=== PATIENT | female | born 1970 | race Caucasian/White ===

== ENCOUNTER 2016-11-16 15:38 | Emergency (ER) | payer BC ==
[2016-11-16] MEDS ORDERED: GI Cocktail Oral Solution 30 ML PO ONE (15:53)
[2016-11-16 15:59] VITALS: BP 150/91
--- NOTE | 2016-11-16 16:09 | EDM.PDOC ---
ED HPI GENERAL MEDICAL PROBLEM - General Chief Complaint: General Stated Complaint: ESOPHAGEAL PAIN Time Seen by Provider: 11/16/16 15:40 Source of Information: Reports: Patient History Limitations: Reports: No Limitations - History of Present Illness INITIAL COMMENTS - FREE TEXT/NARRATIVE: According to patient she claims that she has been having sensation of food stuck in her throat almost all the time for the past 3 years. now She claims some times she has to vomit to feel better. No heart marie. No back pain. No nausea. But over the past 1 month it has got worse. She claims even liquids feel like it gets stuck in the throat. She drank some soup today and feel like it is stuck in the throat. No pain in the throat or chest. No shortness of breath. No drooling of saliva. No fever or chills. Pt claims that she was seen in [place] 3 years ago and had swallow study done and was reassured everything was fine, but has not felt any better. She has tried omeprazole in the past and also tries TUMs on and off, but does not help.Apparently pt has not seen her primary care provider for a while. - Related Data Allergies Allergy/AdvReac Type Severity Reaction Status Date / Time morphine Allergy Hives Verified 11/16/16 15:59 oxycodone Allergy Hives Verified 11/16/16 15:59 Home Meds: Home Meds D-Methorphan/PE/Acetaminophen [Daytime Cold & Flu Liquid] 30 ml PO DAILY [History] DM/P-Ephed/Acetaminoph/Doxylam [Nyquil D Cold & Flu Liquid] 30 ml PO DAILY 09/10 [History] Ibuprofen [Advil] 200 mg PO BID 09/10/14 [History] Past Medical History Other Musculoskeletal History: pain in her side all the time. Social & Family History - Tobacco Use Smoking Status *Q: Former Smoker Years of Tobacco use: 6 Used Tobacco, but Quit: Yes Month Tobacco Last Used: april Second Hand Smoke Exposure: No - Alcohol Use Days Per Week of Alcohol Use: 7 Number of Drinks Per Day: 1 Total Drinks Per Week: 7 - Recreational Drug Use Recreational Drug Use: No ED ROS GENERAL - Review of Systems Review Of Systems: See Below Constitutional: Denies: Fever, Chills, Malaise, Night Sweats, Weight Loss, Weight Gain HEENT: Denies: Eye Discharge, Hearing Loss, Nose Pain, Sinus Problem, Throat Pain, Throat Swelling Respiratory: Denies: Shortness of Breath, Wheezing, Cough, Sputum Cardiovascular: Denies: Chest Pain, Lightheadedness GI/Abdominal: Reports: Vomiting. Denies: Abdominal Pain, Constipation, Diarrhea , Nausea : Denies: Dysuria, Flank Pain Musculoskeletal: Denies: Joint Pain, Joint Swelling Skin: Denies: Cyanosis, Pruritis, Rash Neurological: Denies: Confusion, Dizziness, Headache ED EXAM, GENERAL - Physical Exam Exam: See Below Free Text/Narrative:: Pt is very anxious and tearful. But not in pain. Exam Limited By: No Limitations General Appearance: Alert, WD/WN, No Apparent Distress, Anxious Eye Exam: Bilateral Eye: EOMI, PERRL Ears: Normal External Exam, Normal Canal, Hearing Grossly Normal, Normal TMs Ear Exam: Bilateral Ear: Auricle Normal, Canal Normal, TM normal Nose: Normal Inspection, Normal Mucosa, No Blood Throat/Mouth: Normal Inspection, Normal Lips, Normal Teeth, Normal Gums, Normal Oropharynx, Normal Voice, No Airway Compromise Head: Atraumatic, Normocephalic Neck: Normal Inspection, Supple, Non-Tender, Full Range of Motion Respiratory/Chest: No Respiratory Distress, Lungs Clear, Normal Breath Sounds, No Accessory Muscle Use, Chest Non-Tender Cardiovascular: Normal Peripheral Pulses, Regular Rate, Rhythm, No Edema, No Gallop, No JVD, No Murmur, No Rub GI/Abdominal: Normal Bowel Sounds, Soft, Non-Tender, No Organomegaly, No Distention, No Abnormal Bruit, No Mass Back Exam: Normal Inspection, Full Range of Motion, NT Extremities: Normal Inspection, Normal Range of Motion, Non-Tender, Normal Capillary Refill, No Pedal Edema Neurological: Alert, Oriented, CN II-XII Intact, Normal Cognition, Normal Gait, Normal Reflexes, No Motor/Sensory Deficits Psychiatric: Anxious, Tearful Course - Vital Signs Text/Narrative:: Pt is having feeling of something stuck in her throat for about 3 years now. She has had normal swallow study done in [place]. Pt is very anxious. She did received GI cocktail which did not help her much. She is not vomiting, but c /o of something stuck in the throat. Her oral exam and general exam is normal. She has treated herself for Peptic ulcer disease with TUMs and omeprazole which have not help. 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 Her chest Xray is normal. I have recommended patient to followup in the clinic and have Upper GI study done for further workup of her swallow issue. Last Recorded V/S: Last Vital Signs Temp 99.8 F 11/16/16 15:55 Pulse 96 11/16/16 15:55 Resp BP 150/91 H 11/16/16 15:55 Pulse Ox 98 11/16/16 15:55 - Orders/Labs/Meds Orders: Active Orders 24 hr Category Date Time Status Chest 2V [CR] Stat Exams 11/16/16 16:20 Ordered Meds: Medications Discontinued Medications Generic Name Dose Route Start Last Admin Trade Name Freq PRN Reason Stop Dose Admin Al Hydroxide/Mg Hydroxide 30 ml 11/16/16 15:53 Gi Cocktail PO 11/16/16 15:54 ONETIME ONE Departure - Departure Time of Disposition: 16:40 Disposition: Home, Self-Care 01 Condition: Good Clinical Impression: Globus hystericus - Discharge Information Forms: ED Department Discharge Additional Instructions: Follow-up in the clinic to get get an appt with a specialist to do an upper GI scope. 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 Clinical exam is normal. Her chest Xray is normal. I have recommended patient to followup in the clinic and have Upper GI study done for further workup of her swallow issue.
--- NOTE | 2016-11-17 08:37 | CR ---
DATE OF SERVICE: 11/16/16 CLINICAL DATA: difficulty swallowing PA AND LATERAL CHEST: Normal. [id number] MTDD
== END 2016-11-16 16:38 | disposition home or self-care (01) ==
LOC: LB.ED 15:38
DX: F45.8 Other somatoform disorders (principal); Z88.5 Allergy status to narcotic agent; Z79.899 Other long term (current) drug therapy; Z87.891 Personal history of nicotine dependence
CPT/HCPCS: 71020; 99283

== ENCOUNTER 2017-11-01 15:09 | Emergency (ER) | payer BC ==
--- NOTE | 2017-11-01 16:11 | EDM.PDOC ---
ED HPI GENERAL MEDICAL PROBLEM - General Chief Complaint: Upper Extremity Injury/Pain Stated Complaint: Broken Thumb Time Seen by Provider: 11/01/17 15:15 Source of Information: Reports: Patient, Family History Limitations: Reports: No Limitations - History of Present Illness INITIAL COMMENTS - FREE TEXT/NARRATIVE: Patient is a 47 year old woman who was walking her Ashlee Galdamez, who is a large dog with and extendable leash on which a piece of rope was tied. The dog went in a direction different than she thought he would and the end of her thumb had the rope wrapped around it. When the dog came to the end of the leash , the end of her thumb was pulled and the distal phalange was torn off the proximal phalange and is sitting in front of the proximal phalange held there by a piece of skin and muscle. Onset: Today Onset Date: 11/01/17 Onset Time: 14:45 Duration: Minutes: (30) Location: Reports: Upper Extremity, Right (Distal phalange partial amputation.) Quality: Reports: Sharp Severity: Severe Improves with: Reports: None Worsens with: Reports: None Context: Reports: Activity (Walking the dog.) Associated Symptoms: Reports: No Other Symptoms - Related Data Allergies Allergy/AdvReac Type Severity Reaction Status Date / Time morphine Allergy Hives Verified 11/16/16 15:59 oxycodone Allergy Hives Verified 11/16/16 15:59 Home Meds: Home Meds D-Methorphan/PE/Acetaminophen [Daytime Cold & Flu Liquid] 30 ml PO DAILY [History] DM/P-Ephed/Acetaminoph/Doxylam [Nyquil D Cold & Flu Liquid] 30 ml PO DAILY 09/10 [History] Ibuprofen [Advil] 200 mg PO BID 09/10/14 [History] Past Medical History Other Musculoskeletal History: pain in her side all the time. Review of Systems - Review of Systems Review Of Systems: See Below Constitutional: Reports: No Symptoms Eyes: Reports: No Symptoms Ears: Reports: No Symptoms Nose: Reports: No Symptoms Mouth/Throat: Reports: No Symptoms Respiratory: Reports: No Symptoms Cardiovascular: Reports: No Symptoms GI/Abdominal: Reports: No Symptoms Genitourinary: Reports: No Symptoms Musculoskeletal: Reports: Hand Pain (Severe pain ) Skin: Reports: No Symptoms Neurological: Reports: No Symptoms ED EXAM, GENERAL - Physical Exam Exam: See Below Exam Limited By: No Limitations General Appearance: Alert, WD/WN, No Apparent Distress Eye Exam: Bilateral Eye: EOMI, Normal Fundi, Normal Inspection, PERRL Ears: Normal External Exam, Normal Canal, Hearing Grossly Normal, Normal TMs Ear Exam: Bilateral Ear: Auricle Normal, Canal Normal, TM normal Nose: Normal Inspection, Normal Mucosa, No Blood Throat/Mouth: Normal Inspection, Normal Lips, Normal Teeth, Normal Gums, Normal Oropharynx, Normal Voice, No Airway Compromise Head: Atraumatic, Normocephalic Neck: Normal Inspection, Supple, Non-Tender, Full Range of Motion Respiratory/Chest: No Respiratory Distress, Lungs Clear, Normal Breath Sounds, No Accessory Muscle Use, Chest Non-Tender Cardiovascular: Normal Peripheral Pulses, Regular Rate, Rhythm, No Edema, No Gallop, No JVD, No Murmur, No Rub Extremities: Other (The distal phalange of the right thumb is sitting in front of the proximal phalange of the right thumb, held there by a 1 cm by 3 mm thick piece of skin and muscle. It is dislocated and open to the air.) Neurological: Alert, Oriented, CN II-XII Intact, Normal Cognition, Normal Gait, Normal Reflexes, No Motor/Sensory Deficits Psychiatric: Normal Affect, Normal Mood Skin Exam: Warm, Dry, Intact, Normal Color, No Rash Course - Vital Signs Text/Narrative:: Patient's thumb was clean in saline and betadine and then rinsed with sterile saline. Sterile saline gauze covered by a bulky dressing for protection for transport was done. She was given 30 mg of IV Toradol and 2 grams of IV Ancef along with IV Zofran and her discomfort was improved. She will be flown to [facility] to have a hand surgeon reattach the end of her right thumb. She will be flow by fixed wing air ambulance. Last Recorded V/S: Last Vital Signs Temp 36.3 C 11/01/17 17:53 Pulse 104 H 11/01/17 17:53 Resp 18 11/01/17 17:53 BP 120/75 11/01/17 17:53 Pulse Ox 97 11/01/17 17:53 - Orders/Labs/Meds Orders: Active Orders 24 hr Category Date Time Status Fingers Thumb Rt F5 [CR] Stat Exams 11/01/17 15:53 Taken Ondansetron [Zofran] Med 11/01/17 17:17 Active 4 mg IVPUSH Q4H PRN Sodium Chloride 0.9% [Saline Flush] Med 11/01/17 16:14 Active 10 ml FLUSH ASDIRECTED PRN Saline Lock Insert [OM.PC] Routine Oth 11/01/17 16:14 Ordered Medication Orders Ondansetron HCl (Zofran) 4 mg IVPUSH Q4H PRN PRN Reason: Nausea/Vomiting Last Admin: 11/01/17 16:40 Dose: 4 mg Sodium Chloride (Saline Flush) 10 ml FLUSH ASDIRECTED PRN PRN Reason: Keep Vein Open Last Admin: 11/01/17 16:35 Dose: 10 ml Labs: Laboratory Tests 11/01/17 Range/Units 15:53 WBC 7.5 D (4.0-11.0) K/uL RBC 4.06 (3.80-5.80) M/uL Hgb 13.2 (11.5-16.5) g/dL Hct 39.0 (37.0-47.0) % MCV 96 (76-96) fL MCH 32.5 H (27.0-32.0) pg MCHC 33.8 (31.0-35.0) g/dL RDW 11.8 (11.0-16.0) % Plt Count 316 (150-500) K/uL MPV 9.5 (6.0-10.0) fL Neut % (Auto) 54.4 (45.0-70.0) % Lymph % (Auto) 35.6 (20.0-40.0) % Converse % (Auto) 7.2 (3.0-10.0) % Eos % (Auto) 2.3 (1.0-5.0) % Baso % (Auto) 0.5 (0.0-0.5) % Neut # (Auto) 4.09 (2.00-7.50) K/uL Lymph # (Auto) 2.68 (1.50-4.00) K/uL Converse # (Auto) 0.54 (0.20-0.80) K/uL Eos # (Auto) 0.17 (0.04-0.40) K/uL Baso # (Auto) 0.04 (0.02-0.10) K/uL Meds: Medications Generic Name Dose Route Start Last Admin Trade Name Freq PRN Reason Stop Dose Admin Ondansetron HCl 4 mg 11/01/17 17:17 11/01/17 16:40 Zofran IVPUSH 4 mg Q4H PRN Administration Nausea/Vomiting Sodium Chloride 10 ml 11/01/17 16:14 11/01/17 16:35 Saline Flush FLUSH 10 ml ASDIRECTED PRN Administration Keep Vein Open Discontinued Medications Generic Name Dose Route Start Last Admin Trade Name Freq PRN Reason Stop Dose Admin Ketorolac Tromethamine 30 mg 11/01/17 17:16 11/01/17 16:35 Toradol IVPUSH 11/01/17 17:17 30 mg ONETIME ONE Administration Departure - Departure Time of Disposition: 19:00 Disposition: DC/Tfer to Acute Hospital 02 Condition: Good Clinical Impression: Dislocation of right thumb Qualifiers: Encounter type: initial encounter Qualified Code(s): S63.104A - Unspecified dislocation of right thumb, initial encounter Open fracture dislocation of thumb Qualifiers: Encounter type: initial encounter Laterality: right Qualified Code(s): S62.501B - Fracture of unspecified phalanx of right thumb, initial encounter for open fracture - Discharge Information Forms: ED Department Discharge - My Orders Last 24 Hours: My Active Orders 11/01/17 15:53 Fingers Thumb Rt F5 [CR] Stat 11/01/17 16:14 Sodium Chloride 0.9% [Saline Flush] 10 ml FLUSH ASDIRECTED PRN Saline Lock Insert [OM.PC] Routine 11/01/17 17:17 Ondansetron [Zofran] 4 mg IVPUSH Q4H PRN - Assessment/Plan Last 24 Hours: My Active Orders 11/01/17 15:53 Fingers Thumb Rt F5 [CR] Stat 11/01/17 16:14 Sodium Chloride 0.9% [Saline Flush] 10 ml FLUSH ASDIRECTED PRN Saline Lock Insert [OM.PC] Routine 11/01/17 17:17 Ondansetron [Zofran] 4 mg IVPUSH Q4H PRN
[2017-11-01] MEDS ORDERED: Sodium Chloride 0.9% 10 ML Syringe FLUSH PRN (16:14)
[2017-11-01] MEDS ORDERED: Ketorolac 30 MG/ML SDV IVPUSH ONE (17:16)
[2017-11-01] MEDS ORDERED: Ondansetron 4 MG/2 ML SDV IVPUSH PRN (17:17)
[2017-11-01 18:01] VITALS: BP 120/75
[2017-11-01] MEDS ORDERED: ceFAZolin 2 GM in Sodium Chloride 0.9% 100 ML IV ONE (18:29)
[2017-11-01] MEDS ORDERED: Diphtheria/Tetanus Toxoids,Adult (Td) 0.5 ML SDV IM ONE (18:40)
--- NOTE | 2017-11-02 08:08 | CR ---
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 There is also fracture dislocation of the IP joint of the thumb with significant posterior dislocation of the distal phalanx with respect to the proximal. No other acute abnormalities. [id number] [facility]
== END 2017-11-01 19:00 ==
LOC: LB.ED 15:09
DX: S62.511B Displaced fracture of proximal phalanx of right thumb, initial encounter for open fracture (principal); Z88.5 Allergy status to narcotic agent; X50.9XXA Other and unspecified overexertion or strenuous movements or postures, initial encounter; Y93.K1 Activity, walking an animal; Z23 Encounter for immunization
CPT/HCPCS: 36415; 73140; 85025; 90471; 90714; 96374; 96375; 99283; A0425; A0429; J0690; J1885; J2405; J7030; J7050

== ENCOUNTER 2021-06-02 16:50 | Emergency (ER) | payer BC ==
[2021-06-02] MEDS ORDERED: fentaNYL 100 MCG/2 ML SDV IM ONE (17:36)
[2021-06-02 17:42] VITALS: BP 144/96; PULSE 89
[2021-06-02] MEDS ORDERED: fentaNYL 100 MCG/2 ML SDV ONE (17:54)
== END 2021-06-02 18:45 | disposition home or self-care (01) ==
LOC: LB.ED 16:50
DX: S52.592A Other fractures of lower end of left radius, initial encounter for closed fracture (principal); Z88.5 Allergy status to narcotic agent; W01.0XXA Fall on same level from slipping, tripping and stumbling without subsequent striking against object, initial encounter; Y92.000 Kitchen of unspecified non-institutional (private) residence as the place of occurrence of the external cause
CPT/HCPCS: 73090-LT; 73110-LT; 99283; 99283-25